=== PATIENT | female | born 1950 | race African-American/Black ===

== ENCOUNTER 2019-04-24 07:25 | Inpatient (IN) ==
--- NOTE | 2019-04-18 13:28 | EKG Report ---
Test Performed on : 04/18/2019 1:10:19 PM Test Reason : pat Blood Pressure : / mmHG Vent. Rate : 057 BPM Atrial Rate : 057 BPM P-R Int : 148 ms QRS Dur : 098 ms QT Int : 428 ms P-R-T Axes : 023 -19 -06 degrees QTc Int : 416 ms Sinus bradycardia. Nonspecific T wave abnormality Abnormal ECG No previous ECGs available Confirmed by Jignesh Brian MD ([id number]) on 04/23/2019 8:30:41 AM
[2019-04-18 14:07] LABS: BASO# 0.01 X1000 (0.0-0.2); BASO% 0.2 % (0.0-0.8); EOS# 0.18 X1000 (0.0-0.7); EOS% 4.1 % (0.0-10.0); HEMATOCRIT 41.3 % (37.0-47.0); HEMOGLOBIN 13.4 g/dL (12.0-16.0); LYMPH# 1.47 X1000 (1.2-3.4); LYMPH% 33.2 % (20.5-51.1); MCH 26.8 PG (27-31); MCHC 32.4 g/dL (33-37); MCV 82.6 FL (81-99); MONO# 0.52 X1000 (0.11-0.59); MONO% 11.7 % (1.7-9.3); MPV 11.1 FL (7.4-10.4); NEUT# 2.25 X1000 (1.4-6.5); NEUT% 50.8 % (42.2-75.2); PLT 231 X1000 (130-400); RDW 14.9 % (11.5-14.5); WBC 4.43 X1000 (4.8-10.8)
[2019-04-18 14:29] LABS: AGAP 13; BUN 7 mg/dL (8-22); CALCIUM 10.1 mg/dL (8.8-10.2); CHLORIDE 100 mmol/L (98-107); COSMO 278; CREATININE 0.7 mg/dL (0.5-0.9); ESTIMATED GFR > 60; GLUCOSE 101 mg/dL (70-104); POTASSIUM 3.5 mmol/L (3.5-5.1); SODIUM 140 mmol/L (136-145); TCO2 27 mmol/L (25-35)
--- NOTE | 2019-04-24 03:55 | HISTORY AND PHYSICAL ---
HISTORY: The patient is a 68-year-old female who is going to be admitted on this day for robotic surgery of a rectal mass that was approximately 15 cm in size. However, she is also noted to have a 10 cm ovarian mass. Because of this, I have been asked to scrub in with the general surgeon to do this procedure robotically with him. I discussed this at length with the patient in an office visit, and she understands and is wishing to proceed, and wishes for me to be available and perform the laparoscopic bilateral salpingo-oophorectomy. The risks and benefits were discussed at length. PAST MEDICAL HISTORY: Positive for type 2 diabetes, hypertension, hypercholesterolemia, and newly diagnosed colon cancer. PAST SURGICAL HISTORY: Positive for exploratory laparotomy with biopsy of endometriosis, a sebaceous cyst in the left breast and bilateral tubal ligation. She is noted to be a para 2, 0-0- 2. ALLERGIES: None. CURRENT MEDICATIONS: 1. Amlodipine 10. 2. Carvedilol 25. 3. Janumet 50 - 500. 4. Meloxicam 15. 5. Potassium chloride 10 mEq. 6. Amitriptyline 50. FAMILY HISTORY: Positive for throat cancer in her brother. PHYSICAL EXAMINATION: VITAL SIGNS: BMI is 32. HEENT: Normocephalic, atraumatic. PERRLA. EOMI. NECK: No thyromegaly. CV: Regular rate and rhythm without murmur, gallop, or rub. PULMONARY: Clear. ABDOMEN: Soft. GENITOURINARY: Deferred because of the known mass, and not wanting to cause any issues from an aggressive exam. NEUROLOGIC: Afocal. EXTREMITIES: Without clubbing or cyanosis. ASSESSMENT AND PLAN: Patient is scheduled for laparoscopic bilateral salpingo-oophorectomy to be performed robotically and concomitantly with General Surgery who is doing correction of a rectal cancer. cc: MD Joe Pittman MD
[2019-04-24] MEDS ORDERED: PEPCID ONE (07:35)
[2019-04-24] MEDS ORDERED: MEFOXIN 2 GM/NS 2 GM/50 ML IVPB ONE (07:35)
[2019-04-24] MEDS ORDERED: KEFZOL 1 GM/D5W 1 GM/50 ML IVPB ONE (07:35)
[2019-04-24] MEDS ORDERED: LR 1,000 ML ONE ×2 (07:35→08:36)
[2019-04-24] MEDS ORDERED: ENTEREG ONE (07:35)
[2019-04-24] MEDS ORDERED: NS 50 ML ONE (07:36)
--- NOTE | 2019-04-24 08:18 | H&P REVIEW ---
H&P Update H&P Review: H&P was reviewed and patient was examined, No change has occurred in the patient's condition
[2019-04-24] MEDS ORDERED: DIPRIVAN 1% ONE (08:24)
[2019-04-24] MEDS ORDERED: FENTANYL ONE (08:24)
[2019-04-24] MEDS ORDERED: XYLOCAINE-MPF 2% ONE (08:25)
[2019-04-24] MEDS ORDERED: SODIUM CHLORIDE 0.9% 10 ML ONE ×3 (08:25→11:39)
[2019-04-24] MEDS ORDERED: QUELICIN (DOSE) ONE (08:25)
[2019-04-24] MEDS ORDERED: NORCURON ONE ×2 (08:25→11:39)
[2019-04-24] MEDS ORDERED: EXPAREL 1.3% ONE (08:32)
[2019-04-24] MEDS ORDERED: MARCAINE 0.25% ONE (08:32)
[2019-04-24] MEDS ORDERED: DECADRON ONE (09:37)
[2019-04-24] MEDS ORDERED: OFIRMEV 1000 MG/ISOTONIC SOLN 1,000 MG/100 ML BOTTLE ONE (12:09)
[2019-04-24] MEDS ORDERED: ROBINUL ONE (12:17)
[2019-04-24] MEDS ORDERED: NEOSTIGMINE ONE (12:17)
[2019-04-24] MEDS ORDERED: ZOFRAN ONE (12:37)
[2019-04-24] MEDS: MORPHINE ONE ×3 (13:28→18:28)
[2019-04-24] MEDS ORDERED: TYLENOL PO PRN (13:35)
[2019-04-24] MEDS ORDERED: D5 1/2 NS + KCL 20 MEQ 1,000 ML ONE (13:51)
--- NOTE | 2019-04-24 13:57 | OPERATIVE NOTE ---
PROCEDURE DATE: 04/24/2019 PREOPERATIVE DIAGNOSES: 1. Left adnexal mass. 2. Colon cancer at the rectum. POSTOPERATIVE DIAGNOSES: 1. Left adnexal mass. 2. Rectal cancer 8 centimeter from the sphincters. PROCEDURES: 1. Robot-assisted laparoscopic bilateral salpingo-oophorectomy performed by Dr. Goodman. 2. Robot-assisted laparoscopic converted to open low anterior resection with total mesorectal excision. 3. Flexible sigmoidoscopy. SURGEONS: Joe Dior MD. ASSISTANTS: Dennis Goodman MD, assisted me in my procedure and Dr. Alcantara also assisted. ANESTHESIA: General endotracheal. INTRAOPERATIVE FINDINGS: Large adnexal mass on the left side. A normal- appearing right ovary. Rectal area cancer was located 8 cm in vivo from the anal verge. COMPLICATIONS: None at time of dictation. ESTIMATED BLOOD LOSS: 3 mL. SPECIMENS REMOVED: Bilateral ovaries, and rectum with sigmoid. DRAINS: Peterson catheter. BRIEF HISTORY: A 68-year-old female who had a colonoscopy that showed a cancer in her rectum. She had an MRI that did not show invasion. 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 The risks, benefits and alternatives for my procedure for the colectomy were discussed. Risks including, but not limited to bleeding, infection, risk of anesthesia, risk of injury to ureters, risk of injury to surrounding tissues, risk of anastomotic leak, risk of colostomy were discussed and all questions answered. DESCRIPTION OF PROCEDURE: After informed consent was obtained, the patient was brought to the operative theatre, transferred to the operative table and placed in the supine position. General endotracheal anesthesia was then performed without complication. A formal time- out was then performed confirming patient, date, and procedure. All were in agreement. At that time, the patient was repositioned in the lithotomy position and her abdomen was prepped and draped in a sterile fashion. After the time-out, we turned our attention to the abdomen. I initially placed the trocars, 1 supraumbilical, 1 in the midway point between the umbilicus and the anterior superior iliac spine on the right side, 1 in the anterior axillary line on the left, and 1 superior to this, and we put in an acquisitions assistant port in the right upper quadrant. Using these, we docked the robot. I placed the initial trocar using Optiview technique. The other trocars were placed with direct visualization. At this point, Dr. Goodman took over the procedure. Please see his dictation for the details. I did stay during the entirety of his procedure. Once Dr. Goodman completed his part, I turned my attention to the robot console. We started by elevating the redundant sigmoid colon. We made a window in the base of the sigmoid colon, started taking the mesentary down all the way down to the peritoneal reflection. We found the area of tattooing very distal down the rectum, more distal than initially described. At this point, I turned my attention to doing a flexible sigmoidoscopy to confirm where the area was. It appeared to be 8 cm from the sphincters, felt to still be amenable to resection. I had Dr. Alcantara step into the procedure at this point to assist with operative planning. His presence was crucial for decision making and performing the procedure. We both felt like this could be resected. We turned our attention back to the robot. We elevated the sigmoid colon, made a window in the base of the mesentery, divided the sigmoid branches, inferior mesenteric artery, and dissected down. We had a total mesorectal excision. We did transect the sigmoid colon at a length that was appropriate for bringing it down to the rectum and we then elevated this distal end to do our total mesorectal excision. We took it all the way down, took it off the lateral stalks bilaterally all the way down to approximately 4 to 5 cm from the perineum. At this point given visualization and need to be able to fill the area, I elected to convert to an open procedure. We made a standard lower midline incision. Dr. Alcantara assisted with this part. His presence was crucial to completion of this part. We used a [place] retractor, retracted the uterus superiorly, continued some dissection down for a total mesorectal excision, placed a TA stapler down, which was approximately 6 cm in vivo from the sphincters, and then fired the stapler with good results. We then continued the dissection to remove the specimen, confirmed that there was a polyp in the specimen and the Nedra ink in the specimen with the margins being at least 1 cm in vivo. We then turned our attention to doing anastomosis. We elected do an end-to-side anastomosis. We made a colotomy on the proximal end, placed the anvil through it using the 28 EEA stapler. We performed the anastomosis, tested it under water, it was good. There was no leaking. We irrigated out the abdomen copiously until the suction fluid was clear. We had removed all the specimens including the left and right ovary and the colon. At this point, we examined the abdomen, there was no complication noted at this time. Again, the anastomosis was airtight, tested under water. We closed the fascia with a running loop PDS, started on either side and then closed the skin with cr. The patient tolerated the procedure well. She will be watched overnight. Again, it should be noted that Dr. Goodman assisted with my procedure and Dr. Alcantara assisted. cc: Joe Dior MD [facility]
--- NOTE | 2019-04-24 14:31 | OPERATIVE NOTE ---
PROCEDURE DATE: 04/24/2019 PREOPERATIVE DIAGNOSIS: Left adnexal mass colon cancer. SURGEON: Dennis Goodman MD. THERAPIST RADIATION: Dr. Jeffrey Dior. ANESTHESIA: General endotracheal. ESTIMATED BLOOD LOSS: For my portion of the surgery 10 mL. HISTORY: The patient is a 68-year-old female who is referred to me by Oncology in order to perform a team approach surgery for an adnexal mass as well as a new diagnosis of colon cancer. This was prearranged with Dr. Jeffrey Dior from General Surgery, who would be doing the colon surgery. Preoperatively, we discussed trying to assist each other. He needed port placement based on his portion of the procedure and needed assistance with manipulation of the uterus, which I agreed to do. OPERATIVE FINDINGS: The patient is found to have the left tube and ovary involving a large adnexal mass approximately 8-10 cm with adhesions to the sidewall. OPERATIVE PROCEDURE: The patient is taken operating room, placed supine position. After adequate general anesthesia was obtained, she was then placed in the low adjustable stirrups and at this time Anesthesia placed a ELEONORA block for the abdominal portion of the procedure. Peterson catheter was placed by nursing services. This time her skin was prepped and draped in the usual fashion for laparoscopic surgery. Because the major portion of the procedure that was going to be difficult was the colorectal portion, Dr. Dior placed the ports for completion of his portion of the procedure. I was in the room to confirm positioning adequacy for the bilateral salpingo- oophorectomy. After completion of the port placement then the robot was docked in the usual fashion. We used the atraumatic grasper in arm 2 and arm 1 utilized the robotic blunt vessel sealer. Using these 2 devices we were able to visualize both the right and left-hand ovary. We initially started on the left-hand side, grasping the fallopian tube and ovary and deviating it medial and anterior to avoid closeness to the ureter. We used the vessel sealer in a clamp, cauterize and cut fashion until the right ovary was extirpated. It was then placed in the posterior cul-de-sac. We then turned our attention towards the large left adnexal mass. It was noted to be adhered and we had to perform adhesiolysis using the vessel sealer to do this. It was easily performed until we had better mobilization of the ovary. At this time, we then started coming across the infundibulopelvic ligament, which was well away from the ureter at this point. We continued in clamp, cauterize, and cut fashion until the ovary was extirpated and it was then placed in the appendiceal bed as was the other ovary. We then turned our attention to confirming hemostasis and I left the console at this time and rescrubbed and then went below vaginally. I placed a uterine manipulator within the uterus in the usual fashion, having to dilate the cervical stump and having to place the manipulator and then I manipulated the uterus anterior and to the patient's right side to have better visualization of the distal colon for Dr. Dior to complete his portion. I spent approximately 1 hour doing this in this position while Dr. Dior worked from the robotic console for his portion of the procedure. We obtained an intraoperative consult from one of his General Surgery partners and at this time I then left the operating field and his partners continued with assistance. cc: MD Joe Pittman MD
[2019-04-24] MEDS: MEFOXIN 2 GM/NS 2 GM/50 ML IVPB IV SCH ×2 (15:42→22:49)
[2019-04-24] MEDS: ULTRAM PO PRN ×2 (15:42→20:22)
[2019-04-24] MEDS: D5 1/2 NS + KCL 20 MEQ 1,000 ML IV SCH (15:43)
[2019-04-24] MEDS ORDERED: JANUVIA PO SCH (17:00)
[2019-04-24] MEDS ORDERED: GLUCOPHAGE PO SCH (17:00)
[2019-04-24] MEDS ORDERED: PNEUMOVAX 23 IM ONE (18:43)
[2019-04-24 18:57] LABS: URINE SOURCE CATH
[2019-04-24 19:04] LABS: BILIRUBIN URINE NEGATIVE (NEGATIVE); BLOOD URINE NEGATIVE (NEGATIVE); COLOR STRAW; GLUCOSE URINE TRACE mg/dL (NEGATIVE); KETONE URINE NEGATIVE (NEGATIVE); LEUKOCYTES URINE NEGATIVE (NEGATIVE); NITRITE URINE NEGATIVE (NEGATIVE); PH URINE 7.5; PROTEIN URINE NEGATIVE (NEGATIVE); SP GRAVITY URINE 1.008; TURBIDITY URINE CLEAR (CLEAR); UR EPITHELIAL CELLS <10 /HPF (<10); URINE BACTERIA NEGATIVE /HPF; URINE RBC <10 /HPF (<10); URINE WBC <10 /HPF (<10); UROBILINOGEN URINE NORMAL (NORMAL)
[2019-04-24] MEDS: BENICAR PO SCH (20:21)
[2019-04-24] MEDS: OFIRMEV 1000 MG/ISOTONIC SOLN 1,000 MG/100 ML BOTTLE IV SCH (20:21)
[2019-04-24] MEDS: NORVASC PO SCH (20:22)
[2019-04-24] MEDS: PERIDEX MT SCH (20:22)
[2019-04-24] MEDS: HEPARIN SUBQ SCH (20:22)
[2019-04-24] MEDS: COREG PO SCH (20:22)
[2019-04-25] MEDS: OFIRMEV 1000 MG/ISOTONIC SOLN 1,000 MG/100 ML BOTTLE IV SCH ×3 (01:27→14:14)
[2019-04-25] MEDS: ULTRAM PO PRN ×2 (01:27→09:41)
[2019-04-25] MEDS: HEPARIN SUBQ SCH ×3 (05:07→20:56)
[2019-04-25] MEDS: PRILOSEC PO SCH ×3 (05:07→09:32)
[2019-04-25] MEDS: MEFOXIN 2 GM/NS 2 GM/50 ML IVPB IV SCH ×2 (05:07→09:43)
--- NOTE | 2019-04-25 06:08 | GENERAL SURGERY PROGRESS NOTE ---
DATE: 04/25/2019 SUBJECTIVE: Patient seems to be doing okay. OBJECTIVE: Vital Signs: Patient is currently afebrile. Her vital signs are stable. General: No acute distress. Cardiovascular: Regular rate and rhythm. Lungs: Grossly clear. Abdomen: Soft, appropriately tender. Incision with dressing intact. No soilage noted. ASSESSMENT AND PLAN: A 68-year-old female currently postoperative day #1 from a low anterior resection and bilateral salpingo-oophorectomy. Postoperative state. At this time, patient seems to be doing okay. Will continue routine postoperative care. Will keep her up and moving. Keep her Peterson catheter until tomorrow. Keep her on heparin and keep her on tramadol. Will see how she does. cc: Joe Dior MD
[2019-04-25] MEDS: PERIDEX MT SCH ×2 (09:30→20:56)
[2019-04-25] MEDS: KLOR-CON PO SCH (09:32)
[2019-04-25] MEDS: ENTEREG PO SCH ×2 (09:33→20:56)
[2019-04-25] MEDS: COREG PO SCH ×2 (09:33→20:56)
[2019-04-25] MEDS: JANUVIA PO SCH ×2 (09:38→18:22)
[2019-04-25] MEDS: GLUCOPHAGE PO SCH ×2 (09:39→18:21)
[2019-04-25] MEDS: NORCO-5 PO PRN ×2 (11:02→20:56)
[2019-04-25] MEDS: D5 1/2 NS + KCL 20 MEQ 1,000 ML IV SCH (11:08)
--- NOTE | 2019-04-25 13:42 | HEMO/ONC CONSULTATION ---
DATE: 04/25/2019 REASON FOR CONSULTATION: This is a known patient of ours for the management of rectal cancer. HISTORY OF PRESENT ILLNESS: The patient is a 68-year-old female who underwent a routine colonoscopy by Dr. Abrams. This colonoscopy revealed a single flat polyp in the descending colon which was removed, and a firm sessile polyp in the rectum about 12 cm which was removed by snare cautery. Pathology revealed rectal adenocarcinoma. The patient had an MRI which revealed no evidence of distant metastasis. MRI revealed no evidence of node- positive disease. Dr. Garnica discussed this case with Dr. Dior. They have agree to move forward with surgery. It was also found by her scans for the patient to have an ovarian mass, most likely a dermoid cyst. Dr. Goodman has been asked to join the surgery to remove this simultaneously. PAST MEDICAL HISTORY: Diabetes and hypertension. PAST SURGICAL HISTORY: Tubal ligation, dilatation and curettage, left breast cyst, EGD and colonoscopy. ALLERGIES: No known drug allergies. CURRENT MEDICATION: Amlodipine, carvedilol, Janumet, meloxicam, potassium chloride, amitriptyline. SOCIAL HISTORY: She denies smoking. She drinks alcohol on occasion. FAMILY HISTORY: Her mother had heart problems. Her father had a stroke. REVIEW OF SYSTEMS: Positive for nocturia and arthritis. All other positives noted in the HPI. VITAL SIGNS: Temperature 98.6 degrees, pulse rate 60, respiratory rate 18, blood pressure 101/54, O2 saturation 96% on 2 L via nasal cannula. She is in 9/10 abdominal pain. PHYSICAL EXAMINATION: General: The patient is in no acute distress. She is obese with a BMI of 32.6. HEENT: Sclerae is anicteric. PERRLA. Oral mucosa is moist and pink. Cardiovascular: Normal S1, S2. No murmurs, gallops, or rubs. Respiratory: Chest is clear to auscultation. Normal respiratory effort. Gastrointestinal: Abdomen is soft, nondistended. Skin: No petechiae, ecchymoses or rashes noted. Neurological: Awake, alert, and oriented x3. No focal motor deficits noted. Lymph Survey: No lymphadenopathy noted. LABORATORY DATA: The patient has not had any recent labs that would be contributory. ASSESSMENT: 1. Rectal adenocarcinoma. 2. Ovarian mass. PLAN: The patient will have robot-assisted laparoscopic bilateral salpingo- oophorectomy performed by Dr. Goodman today, as well as robot-assisted laparoscopic converted to open low anterior resection with total mesorectal excision. Await pathology. We will follow along. Thank you. Dictated by KASSIE Jacob for Reid Garnica MD cc: MD Joe Cheney MD [facility]
[2019-04-25] MEDS: NORVASC PO SCH (20:54)
[2019-04-25] MEDS: BENICAR PO SCH (20:56)
[2019-04-26] MEDS: NORCO-5 PO PRN ×3 (04:28→17:37)
[2019-04-26] MEDS: D5 1/2 NS + KCL 20 MEQ 1,000 ML IV SCH ×2 (04:28→05:33)
[2019-04-26] MEDS: HEPARIN SUBQ SCH ×3 (04:29→20:42)
--- NOTE | 2019-04-26 06:29 | GENERAL SURGERY PROGRESS NOTE ---
DATE: 04/26/2019 SUBJECTIVE: Patient seems to be doing okay. She has not passed any gas yet. She has a little bit sick to her stomach but otherwise seems to be doing okay. OBJECTIVE: Vital Signs: Patient is currently afebrile. Her vital signs are stable. General: No acute distress. Cardiovascular: Regular rate and rhythm. Lungs: Grossly clear. Abdomen: Soft, appropriately tender. Dressing intact. Some hypoactive bowel sounds auscultated. ASSESSMENT AND PLAN: A 68-year-old female, currently postoperative day #2 from low anterior resection with bilateral salpingo-oophorectomy. Postop state. At this time, the patient seems to be doing okay. We will need to await return of bowel function. She is going to get her Peterson catheter out today. We will continue to mobilize and await definitive return of bowel function. cc: Joe Dior MD
--- NOTE | 2019-04-26 09:30 | HEMO/ONC PROGRESS NOTE ---
DATE: 04/26/2019 SUBJECTIVE: The patient is lying in bed, comfortable this morning. She states that her abdomen is very sore. She does not feel she is getting adequate pain relief from her current pain medication. We discussed that she needs to discuss that with Dr. Dior. The patient otherwise has no complaints. She has been up walking around. She states she continues to feel better every day. OBJECTIVE: Vital Signs: Temperature 99,0 degrees, pulse rate 72, respiratory rate 18, blood pressure 136/62, O2 saturation 94% on room air. She is in 8/10 abdominal pain. PHYSICAL EXAMINATION: General: The patient is in no acute distress. HEENT: Sclerae anicteric. PERRLA. Oral mucosa is moist and pink. Cardiovascular: Normal S1, S2. Heart rate and rhythm regular. Respiratory: Clear to auscultation. Normal respiratory effort. Gastrointestinal: Abdomen soft, tender to any palpation. Skin: No petechiae, ecchymosis, or rashes noted. Neurological: Awake and oriented x3. No focal motor deficits noted. LABORATORY: No labs today. ASSESSMENT: 1. Rectal adenocarcinoma status post resection. 2. Ovarian mass, likely dermoid cyst, status post bilateral salpingo- oophorectomy. PLAN: The patient is continuing to recover from surgery to remove rectal cancer and ovarian mass. She continues to heal very well. She continues to mobilize. We will continue to await pathology. We will follow up with the patient in the clinic to discuss adjuvant therapy. We will follow the patient peripherally. Please call if needed. Dictated by KASSIE Jacob for Reid Garnica MD cc: MD Joe Cheney MD [facility]
[2019-04-26] MEDS: PRILOSEC PO SCH (09:42)
[2019-04-26] MEDS: ENTEREG PO SCH ×2 (09:42→20:42)
[2019-04-26] MEDS: COREG PO SCH ×2 (09:43→20:42)
[2019-04-26] MEDS: JANUVIA PO SCH ×2 (09:43→17:37)
[2019-04-26] MEDS: PERIDEX MT SCH ×2 (09:44→20:42)
[2019-04-26] MEDS: KLOR-CON PO SCH (09:44)
[2019-04-26] MEDS: GLUCOPHAGE PO SCH ×2 (09:44→17:37)
[2019-04-26] MEDS: BENICAR PO SCH (20:42)
[2019-04-26] MEDS: NORVASC PO SCH (20:42)
[2019-04-26] MEDS: ULTRAM PO PRN (20:51)
[2019-04-27] MEDS: NORCO-5 PO PRN ×5 (05:08→22:12)
[2019-04-27] MEDS: HEPARIN SUBQ SCH ×3 (05:08→22:12)
--- NOTE | 2019-04-27 07:47 | GENERAL SURGERY PROGRESS NOTE ---
DATE: 04/27/2019 SUBJECTIVE: Patient seems to be doing okay. She has been up and mobilizing. She has not passed any gas yet but she says she is feeling okay. OBJECTIVE: Vital Signs: Patient is currently afebrile. Her vital signs stable. General: No acute distress. Cardiovascular: Regular rate and rhythm. Lungs: Grossly clear. Abdomen: Soft, appropriately tender. Incision is healing well. Bowel sounds auscultated. ASSESSMENT AND PLAN: A 68-year-old female, currently postoperative day #3 from low anterior resection with bilateral salpingo-oophorectomy. Postoperative state. At this time, she seems to be doing okay. She is a little sluggish in return of bowel function but she does have bowel sounds. She had her Peterson catheter removed yesterday and she has been able to void. We will continue to monitor her and continue to mobilize her and continue routine postoperative care. At this point, will not change any of her orders at this time. cc: Joe Dior MD
[2019-04-27] MEDS: ENTEREG PO SCH ×2 (08:35→22:12)
[2019-04-27] MEDS: PERIDEX MT SCH ×2 (08:35→22:12)
[2019-04-27] MEDS: COREG PO SCH ×2 (08:35→22:11)
[2019-04-27] MEDS: JANUVIA PO SCH ×2 (08:36→17:49)
[2019-04-27] MEDS: PRILOSEC PO SCH (08:36)
[2019-04-27] MEDS: GLUCOPHAGE PO SCH ×2 (08:36→17:49)
[2019-04-27] MEDS: KLOR-CON PO SCH (08:38)
[2019-04-27] MEDS: BENICAR PO SCH (22:11)
[2019-04-27] MEDS: NORVASC PO SCH (22:11)
[2019-04-28] MEDS: HEPARIN SUBQ SCH ×3 (04:49→22:07)
[2019-04-28] MEDS: NORCO-5 PO PRN ×3 (06:33→17:31)
--- NOTE | 2019-04-28 08:02 | GENERAL SURGERY PROGRESS NOTE ---
DATE: 04/28/2019 SUBJECTIVE: Patient seems to be doing okay. She is still has somewhat of a postoperative ileus. She has been hemodynamically stable. She has been ambulating. She is not sick to her stomach. She is tolerating her diet although she is not taking in much. She is currently postoperative day #4 from low anterior resection. PLAN: We will continue routine postoperative care. Again, she likely has some degree of a postoperative ileus. cc: Joe Dior MD
[2019-04-28] MEDS: PRILOSEC PO SCH (09:18)
[2019-04-28] MEDS: PERIDEX MT SCH ×2 (09:19→22:06)
[2019-04-28] MEDS: GLUCOPHAGE PO SCH ×2 (09:19→17:31)
[2019-04-28] MEDS: COREG PO SCH ×2 (09:19→22:06)
[2019-04-28] MEDS: KLOR-CON PO SCH (09:19)
[2019-04-28] MEDS: ENTEREG PO SCH ×2 (09:19→22:07)
[2019-04-28] MEDS: JANUVIA PO SCH ×2 (09:19→17:31)
[2019-04-28] MEDS: D5 1/2 NS + KCL 20 MEQ 1,000 ML IV SCH (12:02)
[2019-04-28] MEDS: BENICAR PO SCH (22:06)
[2019-04-28] MEDS: NORVASC PO SCH (22:07)
[2019-04-29] MEDS: D5 1/2 NS + KCL 20 MEQ 1,000 ML IV SCH (03:35)
[2019-04-29] MEDS: NORCO-5 PO PRN ×2 (04:07→10:37)
[2019-04-29] MEDS: HEPARIN SUBQ SCH (05:06)
--- NOTE | 2019-04-29 07:20 | GENERAL SURGERY PROGRESS NOTE ---
DATE: 04/29/2019 SUBJECTIVE: Patient doing well. She is in better spirits. She is passing gas. She is tolerating her diet. OBJECTIVE: Vital Signs: The patient is currently afebrile. Her vital signs are stable. General: No acute distress. Cardiovascular: Regular rate and rhythm. Lungs: Grossly clear. Abdomen: Soft. Appropriately tender. Bowel sounds noted. ASSESSMENT AND PLAN: A 68-year-old female, currently postoperative day #5 from low anterior resection. Postoperative state. At this time, she seems to be doing well. If she does well with lunch, may consider discharge today. If not, hopefully in the morning. cc: Joe Dior MD
[2019-04-29 07:27] VITALS: BP 126/64
[2019-04-29] MEDS: PERIDEX MT SCH (08:17)
[2019-04-29] MEDS: JANUVIA PO SCH (08:19)
[2019-04-29] MEDS: COREG PO SCH (08:19)
[2019-04-29] MEDS: GLUCOPHAGE PO SCH (08:19)
[2019-04-29] MEDS: KLOR-CON PO SCH (08:20)
[2019-04-29] MEDS: PRILOSEC PO SCH (08:20)
[2019-04-29] MEDS: ENTEREG PO SCH (08:20)
--- NOTE | 2019-05-01 18:36 | DISCHARGE SUMMARY ---
ADMISSION DATE: 04/24/2019 DISCHARGE DATE: 04/29/2019 ADMITTING DIAGNOSES: 1. Left ovarian mass. 2. Rectal polyp with high-grade dysplasia. DISCHARGE DIAGNOSES: Status post bilateral oophorectomy and open low anterior resection. ADMITTING PHYSICIAN: Dr. Joe Dior CONSULTATIONS: 1. Dr. Dennis Goodman. 2. Dr. Reid Garnica. PROCEDURES: On 04/24/2019 the patient underwent robotic-assisted laparoscopic bilateral salpingo- oophorectomy and robot-assisted laparoscopic converted to open low anterior resection with total mesorectal excision. BRIEF HISTORY AND COURSE OF STAY: The patient is a 68-year-old female who had biopsy-proven rectal malignancy. It was felt that she would benefit from excision. She had an extensive workup prior. She also had a left ovarian mass and wanted it removed. She was admitted and underwent previously-described procedure. Her postoperative course was uncomplicated. She was slowly advanced to a regular diet as she tolerated it. On the day of discharge she was up and ambulating, afebrile, hemodynamically stable, passing gas, and tolerating a regular diet. Her pain control is felt that it would be safe for her to be discharged home, and all arrangements were made. DISCHARGE CONDITION: Stable. DISCHARGE DISPOSITION: Home. PRESCRIPTIONS: The patient was given prescription for pain medicine. FOLLOWUP: The patient told to follow up with Dr. Dior in 1 to 2 weeks. cc: Joe Dior MD
== END 2019-04-29 13:40 | disposition home or self-care (01) | DRG 334 ==
LOC: SURHOLD 07:25 → EDSTATUS 09:30 → 4N 09:50
PROVIDERS: ADMIT Surgery; ATTEND Surgery